=== PATIENT | female | born 2000 | race Caucasian/White ===

== ENCOUNTER 2025-03-07 17:46 | Emergency (ER) | payer MEDICAID ==
[~2025-03-07] VITALS: Ht 149.9 cm; Wt 100.0 kg
[2025-03-07 17:49] VITALS: O2SAT 96
[2025-03-07 18:25] VITALS: TEMP 36.3
[2025-03-07] MEDS: ONDANSETRON HCL 4MG/2ML INJ IV ONE ×2 (18:58→21:29)
[2025-03-07] MEDS: SODIUM CHLORIDE 0.9% 1,000 ML IV ONE (18:58)
[2025-03-07 19:04] LABS: BASOPHILS % 0.7 % (0.0-2.0); EOSINOPHILS % 0.8 % (0.0-5.0); HEMATOCRIT. 39.2 % (36.0-48.0); HEMOGLOBIN. 13.1 g/dL (12.0-16.0); LYMPHOCYTES % 17.8 % (20.0-50.0); MEAN PLATELET VOLUME 9.5 fl (7.4-10.4); MONOCYTES % 6.3 % (2.0-8.0); NEUTROPHILS % 74.4 % (40.0-76.0); PLATELET 249 x1000/uL (130-400); RED BLOOD CELL COUNT 4.37 mill/uL (4.2-5.4); RED CELL DISTRIBUTION WIDTH 14.0 % (11.6-14.6)
[2025-03-07 19:20] LABS: CREATININE 0.8 mg/dL (0.6-1.0); ETHANOL BLOOD < 10 mg/dL (<10); UREA NITROGEN BLOOD 10 mg/dL (9-23)
[2025-03-07 19:21] LABS: HCG SCREEN NEGATIVE
[2025-03-07 19:22] LABS: ASPARTATE AMINOTRANSFERASE 17 IU/L (<34); BILIRUBIN DIRECT < 0.1 mg/dL (<=3.0); BILIRUBIN TOTAL 0.2 mg/dL (0.1-1.0); PROTEIN TOTAL 7.5 g/dL (6.0-8.3)
[2025-03-07] MEDS ORDERED: IBUP-1455 MT (21:17)
[2025-03-07] MEDS ORDERED: KETO10TA2 MT (21:17)
[2025-03-07] MEDS ORDERED: ONDA4TAB50 MT (21:18)
[2025-03-07] MEDS: KETOROLAC 15MG/ML VIAL IV ONE (21:29)
[2025-03-07 21:56] VITALS: BP 103/57; PULSE 94; RESP 27; O2SAT 99
[2025-03-07] MEDS ORDERED: IOHEXOL-300 100 ML BOTTLE ONE (23:27)
== END 2025-03-07 22:00 | disposition home or self-care (01) ==
LOC: ER 17:46
DX: R10.84 Generalized abdominal pain (principal); R11.2 Nausea with vomiting, unspecified; Z90.49 Acquired absence of other specified parts of digestive tract; Z79.899 Other long term (current) drug therapy; Z98.890 Other specified postprocedural states; Z88.5 Allergy status to narcotic agent; Z88.8 Allergy status to other drugs, medicaments and biological substances
CPT/HCPCS: 80076; 80048; 80320; 84703; 83690; 85025; 36415; 74177; 96361; 96374; 96375; 99291; Q9967; J1885; J2405; J7030; Z7610; G0480